=== PATIENT | male | born 1955 | race Caucasian/White ===

== ENCOUNTER 2017-11-09 23:34 | Emergency (ER) | payer MEDICARE, OTHER ==
[~2017-11-09] VITALS: Ht 177.8 cm; Wt 111.1 kg
[~2017-11-09 23:34] MED LIST: DALT10I SQ; DOCU100 PO; HYDPAM50 PO; INDAPAMIDE; MELO7.5 PO; METCAR500 PO; METO100ER PO; OMEP20ER PO; OXYACE5T PO; PROVASTATIN; SULTRIDS PO
[2017-11-10] MEDS ORDERED: Indapamide2.5 MG PO (01:54)
[2017-11-10] MEDS ORDERED: Pravachol40 MG PO (01:56)
[2017-11-10] MEDS ORDERED: HYDR1TAB94 PO (01:58)
[2017-11-10] MEDS ORDERED: ASPI81CH PO (01:58)
== END 2017-11-10 01:59 | disposition home or self-care (01) ==
LOC: ER 23:34
DX: I82.811 Embolism and thrombosis of superficial veins of right lower extremity (principal); I10 Essential (primary) hypertension; K21.9 Gastro-esophageal reflux disease without esophagitis; E78.00 Pure hypercholesterolemia, unspecified; Z91.048 Other nonmedicinal substance allergy status; Z79.899 Other long term (current) drug therapy; Z96.643 Presence of artificial hip joint, bilateral; Z96.651 Presence of right artificial knee joint
CPT/HCPCS: 93971; 99284

== ENCOUNTER 2025-01-09 07:51 | Inpatient (IN) | payer MEDICARE, OTHER ==
[~2025-01-09] VITALS: Ht 175.3 cm; Wt 121.1 kg
[~2025-01-09 07:51] MED LIST changes: +ASPI81CH PO; +HYDR1TAB94 PO; +Indapamide2.5 MG PO; +PRAV20 PO
[2025-01-09] MEDS ORDERED: PANTOPRAZOLE SO2010 PO (08:08)
[2025-01-09] MEDS ORDERED: MELO7.5 (08:08)
[2025-01-09] MEDS ORDERED: ELIQUIS5 M3 PO (08:08)
[2025-01-09] MEDS ORDERED: SPIRONOLACTONE25 MG PO (08:08)
[2025-01-09 08:46] LABS: Albumin/Globulin Ratio 1.2 (0.8-1.8); BASOPHILS ABSOLUTE AUTO 0.04 K/mm3 (0.00-0.23); BASOPHILS PERCENT AUTO 1 % (0-2); Bilirubin, Total 0.8 mg/dL (0.1-1.0); Calcium, Blood 9.4 mg/dL (8.5-10.1); Creatinine, Blood 0.93 mg/dL (0.60-1.20); EOSINOPHILS PERCENT AUTO 4 % (0-6); Globulin, Blood 3.4 g/dL (2.2-4.0); Hematocrit 51.2 % (37.0-53.0); Hemoglobin 17.5 g/dL (13.5-17.5); IMMATURE GRAN ABSOLUTE AUTO 0.03 K/mm3 (0.00-0.10); IMMATURE GRAN PERCENT AUTO 1 % (0-1); LYMPHOCYTES ABSOLUTE AUTO 1.17 K/mm3 (0.84-5.20); LYMPHOCYTES PERCENT AUTO 22 % (21-46); MONOCYTES ABSOLUTE AUTO 0.54 K/mm3 (0.16-1.47); MONOCYTES PERCENT AUTO 10 % (4-13); Mean Corpuscular HGB 33.2 pg (26.0-34.0); Mean Corpuscular HGB Conc 34.2 g/dL (31.5-36.5); Mean Corpuscular Volume 97 fL (80-100); NEUTROPHILS ABSOLUTE AUTO 3.41 K/mm3 (1.96-9.15); NEUTROPHILS PERCENT AUTO 63 % (41-73); Potassium, Blood 4.6 mmol/L (3.5-5.5); RDW Coefficient Variation 12.1 % (11.7-14.2); RDW Standard Deviation 43.3 fL (35.1-46.3); Red Blood Cell Count 5.27 M/mm3 (4.30-5.90); Total Protein, Blood 7.4 g/dL (6.4-8.2); White Blood Cell Count 5.39 K/mm3 (4.00-11.30)
[2025-01-09 09:30] LABS: Mean Platelet Volume 10.1 fL (9.1-12.4); Platelet Count 128 K/mm3 (150-400)
[2025-01-09] MEDS ORDERED: NS 1,000 ML IV ONE (09:30)
[2025-01-09 10:41] LABS: Source, Urine Clean Catch
[2025-01-09 11:04] LABS: Albumin/Globulin Ratio 1.2 (0.8-1.8); Bilirubin, Total 0.8 mg/dL (0.1-1.0); Bun/Creatinine Ratio 24.8 (12.0-20.0); Calcium, Blood 9.2 mg/dL (8.5-10.1); Creatinine, Blood 1.01 mg/dL (0.60-1.20); Globulin, Blood 3.4 g/dL (2.2-4.0); Potassium, Blood 4.8 mmol/L (3.5-5.5); Total Protein, Blood 7.4 g/dL (6.4-8.2)
[2025-01-09 11:33] LABS: Appearance, Urine Clear (Clear); Bilirubin, Urine Neg (Neg); Blood, Urine Neg (Neg); Color, Urine Yellow (P-Yellow); Glucose Qualitative, Urine Neg (Neg); Ketones, Urine Neg (Neg); Leukocyte Esterase, Urine Neg (Neg); Nitrite, Urine Neg (Neg); Protein, Urine 2+ (Neg); Urobilinogen, Urine NORM (Normal)
[2025-01-09 12:20] LABS: Bacteria Not Seen /hpf; Red Blood Cells, Urine Not Seen /hpf (0-2); Squamous Epithelial Cells Not Seen /hpf (Few); White Blood Cells, Urine Not Seen /hpf (0-5)
[2025-01-09 12:22] LABS: Amorphous Light (0-Heavy); Mucus Light (0-Heavy)
[2025-01-09] MEDS ORDERED: FLU VACC TS2024-25(6MOS UP)/PF 45 MCG/0.5 ML SYRINGE IM PRN (13:25)
[2025-01-09] MEDS ORDERED: Magnesium Hydroxide Conc 10 ML UDC PO PRN (13:25)
[2025-01-09] MEDS ORDERED: TraZODone HCl 50 MG Tab PO PRN (13:25)
[2025-01-09] MEDS ORDERED: Bisacodyl 10 MG Supp PR PRN (13:25)
[2025-01-09] MEDS ORDERED: Ondansetron 4 MG TAB PO PRN (13:25)
[2025-01-09] MEDS ORDERED: ELIQUIS5 M2 PO (16:17)
[2025-01-09] MEDS ORDERED: MAGNESIUM OXID400 M5 PO (16:22)
[2025-01-09] MEDS ORDERED: Acetaminophen650 M1 PO (16:24)
[2025-01-09] MEDS ORDERED: Acetaminophen 325 MG TABLET PO PRN (16:40)
--- NOTE | 2025-01-09 17:33 | NUR ---
ADMISSION NOTE: PATIENT ARRIVES TO ROOM VIA W/CHAIR AT 1613 FROM ER FOR DX'S OF CP. PATIENT TRANSFERRED TO BED c SBA. PATIENT ORIENTATED TO ROOM AND CALL SYSTEM. ADMISSION VITALS TAKEN. ADMISSION, MEDRIC AND SKIN ASSESSMENT c 2 RN'S VERIFIED COMPLETED. PATIENT DENIES CP/PRESSURE, SOB, N/V AND DIZZINESS. PATIENT ON TELE, AFIB HR RANGES HIGH 40'S TO 60'S BPM. PATIENT HAD HIS ECHO AND 2ND PART OF STRESS TEST DONE TODAY. PATIENT WILL BE NPO AT [facility] FOR 1ST PART OF STRESS TEST TOMORROW. PATIENT A/OX4. PLEASANT AND COOPERATIVE c CARE. PATIENT HAS PIV TO LAC, SL. SCD'S TO BLE'S IN PLACED. CALL LIGHT IN REACH.
[2025-01-09 19:21] VITALS: BP 150/94
[2025-01-09] MEDS ORDERED: Famotidine 20 MG Tab PO SCH (21:00)
[2025-01-09] MEDS ORDERED: Lactobacil 2-S.Thermo-Bifido 1 1 Cap PO SCH (21:00)
[2025-01-09] MEDS ORDERED: Apixaban 5 MG Tab PO SCH (21:00)
[2025-01-10 00:16] VITALS: BP 148/90
[2025-01-10 05:34] LABS: Hematocrit 50.4 % (37.0-53.0); Hemoglobin 16.6 g/dL (13.5-17.5)
[2025-01-10 05:49] VITALS: BP 151/84
[2025-01-10] MEDS ORDERED: Pantoprazole Sodium 20 MG Tab PO SCH (06:00)
[2025-01-10 06:03] LABS: Bun/Creatinine Ratio 24.6 (12.0-20.0); Calcium, Blood 9.1 mg/dL (8.5-10.1); Creatinine, Blood 0.93 mg/dL (0.60-1.20); Magnesium, Blood 2.4 mg/dL (1.6-2.4); Potassium, Blood 3.9 mmol/L (3.5-5.5)
[2025-01-10 07:39] VITALS: BP 149/78
[2025-01-10] MEDS ORDERED: Regadenoson 0.4 MG/5 ML SYRINGE ONE (08:07)
[2025-01-10] MEDS ORDERED: Aminophylline 250MG / 10ML 10 ML Vial ONE (08:07)
[2025-01-10] MEDS ORDERED: Enoxaparin 40 MG/0.4 ML SYR SC SCH (09:00)
[2025-01-10] MEDS ORDERED: Pravastatin Sodium 20 MG Tab PO SCH (09:00)
[2025-01-10 12:34] VITALS: BP 147/76
[2025-01-10 16:32] VITALS: BP 146/96
--- NOTE | 2025-01-10 17:37 | NUR ---
SHIFT SUMMARY: PATIENT A/OX4, PLEASANT AND COOPERATIVE c CARE. PATIENT DENIES CP/PRESSURE SOB AND N/V. PATIENT ON TELE, A-FLUTTER HR RANGES 37-80 BPM. PATIENT REPORTS OT EPISODE OF DIZZINESS FIRST THING THIS AM WHEN HE STOOD UP TO BATHROOM, BUT RESOLVED. PATIENT DENIES DIZZINESS T/O THE DAY. PATIENT STRESS TEST COMPLETED TODAY, DR. ROBERT SPOKE TO PATIENT AND SPOUSE c TEST RESULT. PATIENT MEDICATED X1 FOR HEADACHE c GOOD EFFECT. PATIENT HAS GREAT APPETITE, CONTINENT OF BLADDER, AMBULATES TO BATHROOOM INDEPENDENTLY T/O SHIFT. PATIENT SHOWERED INDEPENDENTLY, LINEN CHANGED BY CORE MICROARCHITECT. PATIENT AMBULATED IN HALLWAY X1 THIS SHIFT c NO COMPLAIN OF DIZZINESS. VITAL SIGNS REVIEWED. SCD'S IN PLACED TO BLE'S. CALL LIGHT IN REACH.
[2025-01-11 03:34] VITALS: BP 138/91
[2025-01-11 05:00] LABS: Hematocrit 49.4 % (37.0-53.0); Hemoglobin 16.6 g/dL (13.5-17.5)
[2025-01-11 05:21] LABS: Bun/Creatinine Ratio 23.4 (12.0-20.0); Calcium, Blood 9.2 mg/dL (8.5-10.1); Creatinine, Blood 0.99 mg/dL (0.60-1.20); Magnesium, Blood 2.4 mg/dL (1.6-2.4); Potassium, Blood 3.6 mmol/L (3.5-5.5)
[2025-01-11 07:55] VITALS: BP 145/88
--- NOTE | 2025-01-11 10:34 | NUR ---
SHIFT/DISCHARGE NOTE: PATIENT A/OX4, PLEASANT AND COOPERATIVE c CARE. PATIENT DENIES CP/PRESSURE, SOB, N/V AND DIZZINESS. PATIENT ON TELE, A-FLUTTER, HR THE LOWEST IS 43 BPM AND HIGHEST AT 80'S BPM THIS SHIFT. PATIENT REPORTS EPIGASTRIC PAIN 8/10, MEDICATED PER EMAR c MOD EFFECT. PATIENT HAS GREAT APPETITE, CONTINENT OF BLADDER AND AMBULATES TO BATHROOM INDEPENDENTLY. PATIENT HAS ZIO PATCH WAS PLACED IN ED ON ADMISSION FOR 7 DAYS. PATIENT REMOVED ZIO PATCH. PER SPOUSE (ZEHRA) "I WAS ADVISE BY OUR PCP DR. HAMZAH LIM TO REMOVE THE ZIO PATCH AND STRAIGHT TO [facility] AND DON'T WAIT FOR [facility] INTERIOR DESIGN COORDINATOR APPOINTMENT TOMORROW." PIV DC'D. PATIENT DISCHARGE HOME. DISCHARGE INSTRUCTIONS PACKET GIVEN TO PATIENT. PATIENT EDUCATED ON ADMITTING DX'S OF CP, S/S, TX, AND TO F/U c INTERIOR DESIGN COORDINATOR AND PCP. PATIENT AND ZEHRA VERBALIZED UNDERSTANDING AND NO FURTHER QUESTIONS. ALL PERSONAL BELONGINGS WERE SENT c THE PATIENT. PATIENT LEFT THE ROOM AT 1034, TRANSPORTED VIA W/CHAIR BY WOOD BOX MAKER TO PATIENT ENTRANCE.
== END 2025-01-11 10:32 | disposition home or self-care (01) | DRG 313 ==
LOC: ER 07:51 → MEDS 15:22
PROVIDERS: Emergency Medicine; Student in an Organized Health Care Education/Training Program; ADMIT Hospitalist
DX: R07.89 Other chest pain (principal); I35.0 Nonrheumatic aortic (valve) stenosis; I48.91 Unspecified atrial fibrillation; G47.33 Obstructive sleep apnea (adult) (pediatric); E78.5 Hyperlipidemia, unspecified; E11.9 Type 2 diabetes mellitus without complications; Z91.048 Other nonmedicinal substance allergy status; Z79.01 Long term (current) use of anticoagulants; Z79.899 Other long term (current) drug therapy; Z79.82 Long term (current) use of aspirin
CPT/HCPCS: 36415; 71045; 78452; 80048; 80053; 81001; 82947; 83735; 84484; 85014; 85018; 85025; 93005; 93010; 93017; 93242; 93306; 94762; 99285-25; A9270; A9500; G0378; J0280; J2470; J2785; J7030